=== PATIENT | male | born 1950 | race Caucasian/White ===

== ENCOUNTER → 2018-01-21 16:56 | Outpatient (CLI) | payer MEDICARE, OTHER, SELFPAY ==
--- NOTE | 2018-01-21 16:59 | DI.RAD.S_ITS ---
PROCEDURE: XR KNEE LT 3V INDICATIONS: knee pain TECHNIQUE: 3 views of the knee were acquired. COMPARISON: [facility], , KNEE 3V LEFT, 10/02/2015, 8:01. FINDINGS: Bones: No fractures or dislocations. No suspicious bony lesions. Mild thinning of the medial compartment joint with, previously present. Soft tissues: No joint effusion. No suspicious soft tissue calcifications. IMPRESSION: Mild medial compartment joint with narrowing is present but unchanged from a comparison knee evaluation 10/02/15. Dictated by: Chilo Lock M.D. on 01/21/2018 at 17:32 Approved by: Chilo Lock M.D. on 01/21/2018 at 17:32
== END ==
PROVIDERS: Family Provider Family Medicine; PCP Family Medicine; Visit Provider Physician Assistant
DX: M25.562 Pain in left knee (principal)
CPT/HCPCS: 73562

== ENCOUNTER → 2018-02-03 06:53 | Outpatient (CLI) | payer MEDICARE, OTHER, SELFPAY ==
[2018-02-03 07:39] LABS: Cholesterol 117 mg/dL (140-199); HDL Cholesterol 49 mg/dL (40-60); LDL Cholesterol Calculated 45 mg/dL (<100); Triglycerides 113 mg/dL (35-150)
== END ==
PROVIDERS: PCP Family Medicine; Visit Provider Family Medicine
DX: E78.2 Mixed hyperlipidemia (principal)
CPT/HCPCS: 36415; 80061